=== PATIENT | male | born 1950 | race Caucasian/White ===

== ENCOUNTER → 2019-12-04 09:29 | Outpatient (BNVA) | payer MEDICARE, OTHER, SELFPAY | PROVIDERS: Family Provider Family Medicine; PCP Family Medicine; Visit Provider Urology | DX: C61 Malignant neoplasm of prostate (principal); N39.3 Stress incontinence (female) (male); Z87.440 Personal history of urinary (tract) infections | CPT/HCPCS: 81001; 84153 ==

== ENCOUNTER → 2020-06-25 15:07 | Outpatient (BNVA) | payer MEDICARE, OTHER, SELFPAY | PROVIDERS: Family Provider Family Medicine; PCP Family Medicine; Referring Provider Dermatology; Visit Provider Dermatology | DX: L57.0 Actinic keratosis (principal); L82.1 Other seborrheic keratosis; D23.30 Other benign neoplasm of skin of unspecified part of face | CPT/HCPCS: 17000; 17003; 99203 ==

== ENCOUNTER → 2020-08-12 13:46 | Outpatient (BNVA) | payer MEDICARE, OTHER, SELFPAY | PROVIDERS: Family Provider Family Medicine; PCP Nurse Practitioner Family; Visit Provider Urology | DX: C61 Malignant neoplasm of prostate (principal); N39.3 Stress incontinence (female) (male) | CPT/HCPCS: 81001; 84153 ==

== ENCOUNTER → 2021-08-12 09:39 | Outpatient (BNVA) | payer MEDICARE, OTHER, SELFPAY | PROVIDERS: Family Provider Family Medicine; PCP Family Medicine; Visit Provider Urology | DX: Z12.5 Encounter for screening for malignant neoplasm of prostate (principal); N39.3 Stress incontinence (female) (male); C61 Malignant neoplasm of prostate | CPT/HCPCS: 81003; G0103 ==

== ENCOUNTER 2022-08-15 14:24 | Outpatient (CLI) | payer MEDICARE, SELFPAY ==
[2022-08-15 15:20] LABS: Prostate Specific AG Urology 0.07 ng/mL (0-4)
== END 2022-08-15 14:25 | disposition home or self-care (01) ==
LOC: LAB 14:26
PROVIDERS: PCP Family Medicine; Visit Provider Urology
DX: R97.20 Elevated prostate specific antigen [PSA] (principal); C61 Malignant neoplasm of prostate; N39.3 Stress incontinence (female) (male)
CPT/HCPCS: 36415; 81003; 84153; 99213

== ENCOUNTER → 2022-11-21 13:14 | Outpatient (BNVA) | payer MEDICARE, OTHER, SELFPAY | PROVIDERS: PCP Family Medicine; Visit Provider Dermatology | DX: D48.9 Neoplasm of uncertain behavior, unspecified (principal); L57.0 Actinic keratosis; L82.1 Other seborrheic keratosis | CPT/HCPCS: 88305 ==

== ENCOUNTER → 2023-05-24 15:36 | Outpatient (BNVA) | payer MEDICARE, OTHER, SELFPAY | PROVIDERS: PCP Family Medicine; Visit Provider Dermatology | DX: L72.11 Pilar cyst (principal) | CPT/HCPCS: 17000; 17003; 99213 ==

== ENCOUNTER → 2023-09-14 09:11 | Outpatient (BNVA) | payer MEDICARE, OTHER, SELFPAY | PROVIDERS: PCP Family Medicine; Visit Provider Dermatology | DX: D48.5 Neoplasm of uncertain behavior of skin (principal) | CPT/HCPCS: 11423; 12032 ==

== ENCOUNTER → 2023-09-27 09:30 | Outpatient (BNVA) | payer MEDICARE, OTHER, SELFPAY | PROVIDERS: PCP Family Medicine; Visit Provider Nurse Practitioner Family | DX: Z48.02 Encounter for removal of sutures (principal) | CPT/HCPCS: 99024; 99212 ==

== ENCOUNTER → 2024-03-12 13:19 | Outpatient (BNVA) | payer MEDICARE, OTHER, SELFPAY | PROVIDERS: PCP Family Medicine; Visit Provider Nurse Practitioner Family | DX: L57.0 Actinic keratosis (principal); D48.5 Neoplasm of uncertain behavior of skin; L81.4 Other melanin hyperpigmentation; D22.5 Melanocytic nevi of trunk; L85.3 Xerosis cutis; L57.8 Other skin changes due to chronic exposure to nonionizing radiation | CPT/HCPCS: 11102; 17000; 99213 ==

== ENCOUNTER 2024-06-29 04:27 | Emergency (ER) | payer MEDICARE, OTHER, SELFPAY ==
[2024-06-29 04:59] VITALS: BP 167/88; PULSE 83; RESP 18; TEMP 36.8; O2SAT 95; BMI 29.5
[2024-06-29 05:05] VITALS: BP 167/88; PULSE 83; RESP 18; O2SAT 95
--- NOTE | 2024-06-29 05:09 | ED_ITS ---
HPI - General Adult General: Chief complaint: Upper Respiratory Infection Stated complaint: extreamly sore throat 3 days+ Time Seen by Provider: 06/29/24 05:11 History of Present Illness: Patient presents to the ER with complaints of a sore throat about the last 3 days. Patient [place] any other symptoms at this time other than a cough. Patient states he has pain when he swallows and has been getting worse. There was a day that he thought it was getting better but then it came back worse. Patient denies any fevers chills swollen lymph nodes. Related Data Home Medications Medication Instructions Recorded Confirmed allopurinol 100 mg tablet 100 mg PO BID 12/04/19 11/21/22 ezetimibe 10 mg tablet 10 mg PO QDAY 12/04/19 11/21/22 furosemide 20 mg tablet 10 mg PO QAM 12/04/19 11/21/22 levothyroxine 25 mcg capsule 25 mcg PO QDAY 12/04/19 11/21/22 metformin 1,000 mg tablet 1,000 mg PO BID 12/04/19 11/21/22 omeprazole 20 mg capsule,delayed 20 mg PO QDAY 12/04/19 11/21/22 release quinapril 20 mg tablet (Accupril) 20 mg PO QDAY 12/04/19 11/21/22 fenofibrate 54 mg tablet 54 mg PO DAILY 08/12/21 11/21/22 ferrous sulfate 325 mg (65 mg 325 mg PO DAILY 08/15/22 11/21/22 iron) tablet Allergies Allergy/AdvReac Type Severity Reaction Status Date / Time aspirin Allergy Unknown Verified 11/21/22 13:39 Penicillins Allergy Unknown Verified 11/21/22 13:39 Review of Systems General: Reports: 10 or more systems reviewed and unremarkable except in HPI and below PFSH ED PFSH: Medical History (Updated 06/29/24 @ 05:35 by Gregory Manning DO) History of chronic urinary tract infection Male stress incontinence History of kidney stones Prostate cancer Surgical History History of appendectomy History of uvulectomy H/O prostatectomy Family History Father , IN HIS 70'S THROAT CANCER Cancer Mother , IN HER 80'S CANCER Cancer Social History Smoking and tobacco/nicotine status: never used tobacco/nicotine Alcohol intake: current Substance/Drug Use: never Adopted: No Caregiver/support person: No Marital status: / Current occupational status: retired Physical Exam Const: COMMON NORMALS: no acute distress, average body habitus, patient oriented x3, no limitations, healthy appearing, alert and well nourished HENMT: COMMON NORMALS: normocephalic, atraumatic, hearing grossly normal bilaterally, external ears normal, Normal external nose present and moist oral mucous membranes; oropharynx not normal (Oropharynx mildly irritated) HEAD & SCALP: normocephalic and atraumatic NOSE: Normal external nose present EXTERNAL EAR: Yes external ears normal Neck/C-Spine: COMMON NORMALS: full ROM, no lymphadenopathy, supple, no meningeal signs, no JVD and Thyroid normal THYROID: Thyroid normal Chest: COMMONS NORMALS: normal inspection of the chest and normal palpation of entire chest wall Resp: COMMON NORMALS: normal respiratory effort, No retractions, No use of accessory muscles and clear to auscultation bilaterally AUSCULTATION: clear to auscultation bilaterally Cardio: COMMON NORMALS: no JVD, regular rate, regular rhythm, S1 normal heart sound present, S2 normal heart sound present, No gallops present (Cardio), No clicks present (Cardio), No murmurs present (Cardio) and No rub (Cardio) RATE: regular rate RHYTHM: regular rhythm HEART SOUNDS: S1 normal heart sound present and S2 normal heart sound present Neuro: COMMON NORMALS: patient oriented x3 SENSORIUM/ORIENTATION: Yes alert MENINGEAL SIGNS: Yes no meningeal signs Course Vital Signs: Vital signs: Vital Signs Temperature 98.3 F 06/29/24 04:59 Pulse Rate 83 06/29/24 05:05 Respiratory Rate 18 06/29/24 05:05 Blood Pressure 167/88 06/29/24 05:05 Pulse Oximetry 95 06/29/24 05:05 Oxygen Delivery Me thod Room Air 06/29/24 05:05 [facility] - General Adult Medical Decision Making Physical exam was performed, rapid strep test was performed and was negative. Patient discharged home to follow-up with PCP for diagnosis of viral pharyngitis. Medical Records I reviewed the patient's medical records. Lab Data I reviewed the patient's lab results. Laboratory Results Group A Strep Rapid Negative (Negative) 06/29/24 05:17 No radiology studies performed this visit Discharge Plan Discharge Patient Disposition: Home Clinical Impression: Pharyngitis Qualifiers: Pharyngitis/tonsillitis etiology: unspecified etiology Qualified Code(s): J02.9 - Acute pharyngitis, unspecified Condition: Stable Prescriptions: No Action metformin 1,000 mg tablet 1,000 mg PO BID ezetimibe 10 mg tablet 10 mg PO QDAY furosemide 20 mg tablet 10 mg PO QAM allopurinol 100 mg tablet 100 mg PO BID quinapril [Accupril] 20 mg tablet 20 mg PO QDAY omeprazole 20 mg capsule,delayed release(DR/EC) 20 mg PO QDAY levothyroxine 25 mcg capsule 25 mcg PO QDAY fenofibrate 54 mg tablet 54 mg PO DAILY ferrous sulfate 325 mg (65 mg iron) tablet 325 mg PO DAILY Discharge Orders: Discharge ED (Routine); Ordered 06/29/24 Ordered By: Gregory Manning Referrals: George Ferris MD [Primary Care Provider] - 1 week Patient Instructions: Pharyngitis (ED), Upper Respiratory Infection - Adult Activity Restrictions/Additional Instructions: The rapid strep test came back negative. You probably have a viral pharyngitis. These are usually self-limiting. Please gargle with warm salt wate and follow- up with your family practice physician within the next 7 days for further evaluation and treatment as needed. Coding Level of Care Code ED Clinical Laboratory Technician for Singh Jack
[2024-06-29 05:34] LABS: Rapid Strep A Test Negative (Negative)
[2024-06-29 05:44] VITALS: BP 144/80; PULSE 76; O2SAT 93
== END 2024-06-29 05:46 | disposition home or self-care (01) ==
PROVIDERS: Emergency Provider Emergency Medicine; PCP Family Medicine
DX: J02.9 Acute pharyngitis, unspecified (principal); Z79.84 Long term (current) use of oral hypoglycemic drugs; Z85.46 Personal history of malignant neoplasm of prostate
CPT/HCPCS: 87081; 87880; 99283

== ENCOUNTER 2024-07-04 08:53 | Outpatient (CLI) | payer MEDICARE, OTHER, SELFPAY ==
--- NOTE | 2024-07-04 09:00 | XR_ITS ---
WS: [id number] Exam: XR chest 2V* [id number] Date/Time of Exam: 07/04/2024 9:01 AM Reason For Exam: COUGH Comparison 10/14/2013. The lungs are clear and fully expanded. Large hiatal hernia unchanged. Heart size is normal. The medi astinum is normal in contour. Unremarkable bony structures. XR/XR chest 2V* [id number] IMPRESSION: 1. No acute cardiopulmonary finding. 2. Large hiatal hernia.
== END 2024-07-04 08:54 | disposition home or self-care (01) ==
LOC: RAD 08:56
PROVIDERS: PCP Family Medicine; Visit Provider Nurse Practitioner Family
DX: R05.8 Other specified cough (principal); K44.9 Diaphragmatic hernia without obstruction or gangrene
CPT/HCPCS: 71046